=== PATIENT | female | born 1945 | race Caucasian/White ===

== ENCOUNTER 2017-05-31 20:47 | Emergency (ER) | payer OTHER ==
--- NOTE | 2017-05-31 21:25 | EDPHY ---
H & P Stated Complaint: NOSE/L SHOULDER/R KNEE PAIN S/P FALL Time Seen by Provider: 05/31/17 21:24 HPI/ROS: HPI: This is a 72-year-old female presents with Chief Complaint: NOSE/L SHOULDER/R KNEE PAIN S/P FALL Location: Nose, left shoulder, right knee Quality: Injury Duration: 2 hr prior to arrival Signs and Symptoms: + bleeding, no radiation, no numbness, no weakness, no tingling, no incontinence, no decreased range of motion, + swelling, + pain Timing: Sudden Severity: Moderate Context: Patient is originally from [place], [place] and was at her family's house having dinner this evening. She went to put on her shoes and accidentally lost her balance fell forward and hit her nose on a piece of wood. She reports that she struck her left shoulder in her right knee in the process. She denies LOC/neck pain/headache. The only reason she came in his to evaluate her nose cut as her family member who is a nurse believes that she needs sutures. Reports minimal pain. Son at bedside advised that she is at baseline mentation. Denies dizziness/headache/chest pain/shortness of breath/ LOC/abdominal pain/nausea/vomiting. Takes aspirin. Tetanus up-to-date. Modifying Factors: None Comment: ROS: see HPI Constitutional: No fever, no chills, no weight loss Eyes: No blurred vision Respiratory: No shortness of breath, no cough Cardiovascular: No chest pain Gastrointestinal: No nausea, no vomiting no diarrhea Genitourinary: No dysuria Extremities: No myalgias Neurologic: No weakness, no numbness Skin: No rashes Hematologic: No bruising, no bleeding MEDICAL/SURGICAL/SOCIAL HISTORY: Medical/surgical history: HTN, ASTHMA, C3-C4 2009 DISC FUSION Social history: . CONSTITUTIONAL: Pleasant elderly white female, awake and alert, no obvious distress HEENT: normocephalic, left forehead ecchymosis, PERRL, EOMI. no globe entrapment , no raccoon eyes. no Mendoza signs. Tympanic membranes clear. No tympanic membrane rupture. Nares patent; nose near septum/right nare irregular complex superficial 3 cm laceration. no septal hematoma. Oropharynx clear, no exudate and moist pink mucosa. No malocclusion. no dental trauma. Airway patent. No lymphadenopathy. NECK: supple, no midline tenderness, flexion 45 degrees, extension 45 degrees, right and left lateral flexion 45 degrees. No meningismus. Cardiovascular: Normal S1/S2, regular rate, regular rhythm, without murmur rub or gallop. PULMONARY/CHEST: Symmetrical and nontender. no crepitus. Clear to auscultation bilaterally. Good air movement. No accessory muscle usage. ABDOMEN: Soft, nondistended, nontender, no ecchymosis, no rebound, no guarding , no peritoneal signs, no masses or organomegaly. No CVAT. PELVIC: no pain with rocking; bilateral hips flexion 125 degrees, extension 30 degrees, with no pain internal rotation and no pain external rotation. BACK: No midline tenderness, no paraspinous spasm, deep tendon reflexes 2/2, no pain with straight leg raise EXTREMITIES: 2/2 pulses, right KNEE: Mild anterior ecchymosis, no effusion, no medial and lateral joint line tenderness, full extension to 180, flexion to 120, no pain with varus and valgus exam. No pain with anterior drawer or posterior drawer test. left SHOULDER: Arc test abduction to 180, abduction to 45, horizontal flexion 130, horizontal extension to 45, deltoid strength 5 /5. + pain with Neer test/Donnelly test (impingement). + Tenderness to palpation over AC joint. no deformities, no clubbing, no cyanosis or edema. NEUROLOGICAL: no focal neuro deficits. GCS 15. SKIN: Warm and dry, no erythema. no rash. Good capillary refill. Source: Patient Exam Limitations: No limitations - Personal History Current Tetanus Diphtheria and Acellular Pertussis (TDAP): Yes Tetanus Vaccine Date: LESS THAN 10 YEARS - Medical/Surgical History Hx Asthma: Yes Hx Chronic Respiratory Disease: No Hx Diabetes: No Hx Cardiac Disease: No Hx Renal Disease: No Hx Cirrhosis: No Hx Alcoholism: No Hx HIV/AIDS: No Hx Splenectomy or Spleen Trauma: No Other PMH: HTN, ASTHMA, C3-C4 2009 DISC FUSION - Social History Smoking Status: Current some day smoker Constitutional: Initial Vital Signs Temperature (C) 36.4 C 05/31/17 21:08 Heart Rate 82 05/31/17 21:08 Respiratory Rate 16 05/31/17 21:08 Blood Pressure 146/83 H 05/31/17 21:08 O2 Sat (%) 94 05/31/17 21:08 O2 Delivery Mode Room Air Allergies/Adverse Reactions: No Known Allergies Allergy (Unverified 05/31/17 21:05) Home Medications: Medication Instructions Recorded ASPIRIN 05/31/17 Asmanex 05/31/17 Flonase Allergy Relief 05/31/17 oxyCODONE/APAP 5/325 [Percocet 1 - 2 tab PO Q4H PRN #10 tab 05/31/17 5/325 (*)] Medical Decision Making - Diagnostics Imaging Results: Imaging Impressions Nasal Bones X-Ray 05/31/17 21:35 Impression: Possible nondisplaced nasal tip fracture of indeterminate age. Findings and recommendations discussed with Emergency Department physician, Sarah Chan at 23:00 hour, 05/31/2017. Final report concurs with initial preliminary interpretation. Knee X-Ray 05/31/17 21:36 Impression: No definite fracture. Shoulder X-Ray 05/31/17 21:36 Impression: 1. Left lower lobe 1.8 cm pulmonary nodule, nonspecific, for which noncontrast CT chest is recommended to rule out neoplasm. 2. No evidence of left shoulder fracture or dislocation. Findings and recommendations discussed with Emergency Department physician, Sarah Chan at 22:58 hour, 05/31/2017. Final report concurs with initial preliminary interpretation. Procedures: Procedure: Laceration repair. Verbal consent was obtained from the patient. The irregular complex superficial 3 cm laceration on the tip of nose/right nostril was anesthetized in the usual fashion. The wound was irrigated, draped and explored to its base with a gloved finger. There were no deep structures involved. No tendon injury was identified. The wound was repaired with 6-0 Vicryl. Good hemostasis was achieved and patient tolerated procedure well. The wound repair was [ ]. The procedure was performed by myself. Procedure: Splint placement. A left sling was applied by the Emergency Room photographic reproduction technician. After application of the splint I returned and re-examined the patient. The splint was adequately immobilizing the joint and distal to the splint the patient's circulation and sensation was intact. ED Course/Re-evaluation: Right knee x-ray, left shoulder x-ray, nasal bone x-ray, wound care ordered No signs of neurovascular compromise/tenting of skin/compartment syndrome/ extremities and joints examined above and below area of concern and are neurovascularly intact. No LOC. Fall accidental in nature. Shoulder and knee X-rays my read show no acute fracture, dislocation nasal bone x-ray shows possible nondisplaced fracture at tip Placed in left arm sling; for comfort; suspected shoulder internal derangement. However radiologist who advised that in the shoulder x-ray he sees left lower pulmonary nodule and recommends repeat CT chest This patient was seen under the supervision of my secondary supervising physician. I evaluated care for this patient independently. Patient's presentation, labs/imaging, treatment and plan of care were discussed with secondary supervising physician. Differential Diagnosis: Differential diagnosis includes knee contusion, knee internal derangement, shoulder strain, rotator cuff injury, nasal fracture, nasal laceration, contusion. - Data Points Medications Given: Discontinued Medications Tetracaine/Epinephrine/Lidocaine (Let Gel Topical) 1 ea TP EDNOW ONE Stop: 05/31/17 21:36 Last Admin: 05/31/17 21:53 Dose: 1 ea Departure - Departure Disposition: Home, Routine, Self-Care Clinical Impression: Internal derangement of left shoulder Accidental fall Qualifiers: Encounter type: initial encounter Qualified Code(s): W19.XXXA - Unspecified fall, initial encounter Laceration of nose without complication Qualifiers: Encounter type: initial encounter Qualified Code(s): S01.21XA - Laceration without foreign body of nose, initial encounter Contusion of right knee Qualifiers: Encounter type: initial encounter Qualified Code(s): S80.01XA - Contusion of right knee, initial encounter Condition: Good Instructions: Shoulder Sprain (ED), Care For Your Absorbable Stitches (ED), Facial Laceration (ED) Additional Instructions: Wear the left arm sling for comfort. If symptoms persist greater than 7-10 days , follow-up with Orthopedics for MRI of your shoulder to evaluate for rotator cuff/labral injury. Take Tylenol 650 mg every 4 hours and/or Ibuprofen 600 mg every 8 hours with food as needed for pain. Apply ice for 30 minutes at a time; 2-3 times per day for the next 1-2 days. Absorbable sutures were used to repair laceration of your nose today. They will slowly dissolve over time and do not need to be removed. Follow up with Orthopedics in ENT in 7 days at which time they will re-evaluate and recommend with you if conservative management versus age adjuvant therapy is indicated. The x-rays obtained in the emergency department today demonstrate no evidence of an obvious fracture. Sometimes fractures are not obvious on the initial set of x-rays performed in the ED. For this reason, you should have repeat x-rays performed in 7-10 days if you are having any pain exclude the possibility of an occult fracture. Your left shoulder x-ray showed a left lower lobe pulmonary nodule. It is recommend that you obtain an outpatient CT chest scan to further evaluate. Referrals: RADHA ARITA [Other] - As per Instructions Prescriptions: oxyCODONE/APAP 5/325 [Percocet 5/325 (*)] 1 - 2 tab PO Q4H PRN #10 tab PRN Reason: Pain, Severe
[2017-05-31] MEDS ORDERED: LET GEL TOPICAL 1 EA SYR TP ONE (21:35)
[2017-05-31] MEDS ORDERED: OXYCODONE/APAP 5/325MG PREPACK#4 BTL TAKEHOME ONE (23:30)
[2017-05-31] MEDS ORDERED: BACITRACIN OINTMENT 1 PACKET TP ONE (23:33)
[2017-05-31 23:44] VITALS: BP 158/102; PULSE 87; RESP 18; TEMP 98.4; O2SAT 91
== END 2017-06-01 00:05 | disposition home or self-care (01) ==
PROC: 09QKXZZ Repair Nasal Mucosa and Soft Tissue, External Approach (ICD-10-PCS; principal; 2017-05-31)
DX: S01.21XA Laceration without foreign body of nose, initial encounter (principal); S80.01XA Contusion of right knee, initial encounter; M24.112 Other articular cartilage disorders, left shoulder; I10 Essential (primary) hypertension; J45.909 Unspecified asthma, uncomplicated; F17.200 Nicotine dependence, unspecified, uncomplicated; Z79.82 Long term (current) use of aspirin; W01.198A Fall on same level from slipping, tripping and stumbling with subsequent striking against other object, initial encounter; Y93.89 Activity, other specified
CPT/HCPCS: 12013; 73030; 73564; 99284; A4565